=== PATIENT | female | born 1955 | race Caucasian/White ===

== ENCOUNTER 2017-03-14 07:16 | Day surgery (SDC) | payer OTHER ==
[~2017-03-14] VITALS: Ht 162.6 cm; Wt 116.5 kg
[~2017-03-14 07:16] MED LIST: [UNRECOGNIZED DRUG - OTHER] PO
[2017-03-14 07:42] VITALS: Ht 162.6 cm; Wt 116.5 kg
[2017-03-14] MEDS ORDERED: PROPOFOL 20 ML ONE (07:57)
[2017-03-14 08:33] VITALS: BP 147/74; RESP 14
--- NOTE | 2017-03-14 08:56 | OPPN ---
Date/Time of Note Date/Time of Note DATE: 03/14/17 TIME: 08:54 Operative Report Preoperative Diagnosis Positive occult blood in stool Postoperative Diagnosis Internal hemorrhoids Poor prep and suboptimal exam No gross neoplasm is identified Operation/Procedure Performed Colonoscopy Surgeon see signature line hospital clinic assistant None Anesthesia: MAC Estimated blood loss: none Transfusion Required none Specimen None Grafts/Implants none Complications none JESSEE BARAHONA MD Mar 14, 2017 08:56
--- NOTE | 2017-03-14 08:56 | OPPN ---
Date/Time of Note Date/Time of Note DATE: 03/14/17 TIME: 08:54 Operative Report Preoperative Diagnosis Positive occult blood in stool Postoperative Diagnosis Internal hemorrhoids Poor prep and suboptimal exam No gross neoplasm is identified Operation/Procedure Performed Colonoscopy Surgeon see signature line accounting assistant None Anesthesia: MAC Estimated blood loss: none Transfusion Required none Specimen None Grafts/Implants none Complications none JESSEE BARAHONA MD Mar 14, 2017 08:56
--- NOTE | 2017-03-14 08:56 | OPPN ---
Date/Time of Note Date/Time of Note DATE: 03/14/17 TIME: 08:54 Operative Report Preoperative Diagnosis Positive occult blood in stool Postoperative Diagnosis Internal hemorrhoids Poor prep and suboptimal exam No gross neoplasm is identified Operation/Procedure Performed Colonoscopy Surgeon see signature line title i assistant None Anesthesia: MAC Estimated blood loss: none Transfusion Required none Specimen None Grafts/Implants none Complications none JESSEE BARAHONA MD Mar 14, 2017 08:56
[2017-03-14 09:20] VITALS: BP 148/74; RESP 14
--- NOTE | 2017-03-14 10:09 | GILP ---
DATE OF PROCEDURE: NAME OF PROCEDURE: Colonoscopy. SURGEON: Brian Bruner MD PREOPERATIVE DIAGNOSIS: Positive occult blood in stool. POSTOPERATIVE DIAGNOSES 1. Colonoscopy all the way to the anastomotic area. 2. Poor prep making the exam somewhat suboptimal. 3. Internal hemorrhoids. 4. No gross neoplasm was identified. INDICATION FOR THE PROCEDURE: Ms. Jenna Allred is a 61-year-old female patient who was noted to have positive occult blood in stool. She had past history of colon cancer for which she has unde rgone surgery. The patient was scheduled for colonoscopy for further evaluation. The procedure and possible complications are well explained to the patient. The patient understood and consented to the procedure. DESCRIPTION OF PROCEDURE: Under the influence of anesthesia, the colonoscope was carefully introduc ed in the rectum and under direct vision, it was advanced all the way to the anastomotic area. Sowmya ent had poor prep making the exam somewhat suboptimal. The patient was noted to have internal hemor rhoids. No gross neoplasm was identified. She tolerated the procedure very well and there was no complication from the procedure. At the end of the procedure, she was awake with stable vital signs and she was discharged home to the care of h er family. IMPRESSION: Please see postoperative diagnosis. PLAN: Because of the history of colon cancer and suboptimal nature of the examination because of po or prep would recommend next screening colonoscopy in 5 years. Dictated By: BRIAN DUMONT/LETTY Conf#: [id number] DID#: [id number]
== END 2017-03-14 17:32 | disposition home or self-care (01) ==
LOC: GIL 07:16
PROVIDERS: ATTEND Internal Medicine Gastroenterology
DX: K64.8 Other hemorrhoids (principal); R19.5 Other fecal abnormalities; Z85.038 Personal history of other malignant neoplasm of large intestine; I10 Essential (primary) hypertension; E66.01 Morbid (severe) obesity due to excess calories; Z68.41 Body mass index [BMI] 40.0-44.9, adult
CPT/HCPCS: 45378; Z7610

== ENCOUNTER 2017-12-15 21:33 | Inpatient (IN) | END 2017-12-21 13:11 | disposition home or self-care (01) | DRG 389 ==